=== PATIENT | male | born 1950 | race Caucasian/White ===

== ENCOUNTER 2019-06-05 18:51 | Observation (INO) ==
[2019-06-05 19:25] LABS: Basophils # 0.1 10*3/uL (0.0-0.2); Basophils % 0.9 % (0.0-0.8); Eosinophils # 0.3 10*3/uL (0.0-0.87); Hematocrit 35.9 VOL% (42.0-52.0); Hemoglobin 12.3 GM/DL (14.0-18.0); Immature Granulocytes % 0.3 %; Immature Granulocytes Absolute 0.02 #; Lymphocytes # 1.8 10*3/uL (1.4-4.0); Lymphocytes % 26.9 % (21.2-54.2); Mean Corpuscular HGB Conc 34.3 GM/DL (32-36); Mean Corpuscular Volume 91.6 FL (87-102); Mean Platelet Volume 11.2 FL (9.6-12.0); Monocytes % 8.8 % (1.7-12.7); Neutrophils % 59.1 % (38.7-73.9); Platelet Count 170 T/CUMM (130-400); Red Blood Count 3.92 MC/CUMM (3.8-5.5); Red Cell Distribution Width 12.6 % (9.3-17.3); White Blood Count 6.7 T/CUMM (4-12)
[2019-06-05] MEDS ORDERED: METOCLOPRAMIDE 10 MG/2 ML VIAL IV STA (19:43)
[2019-06-05] MEDS ORDERED: ONDANSETRON 4 MG/2 ML VIAL IV STA (19:43)
[2019-06-05] MEDS ORDERED: PANTOPRAZOLE 40 MG VIAL IV STA (19:43)
[2019-06-05 19:46] LABS: Alanine Aminotransferase 35 U/L (16-61); Albumin 3.5 G/DL (3.4-5.0); Alkaline Phosphatase 65 U/L (45-117); Aspartate Amino Transferase 18 U/L (0-37); Bilirubin,Total < 0.39 MG/DL (0.2-1.0); Blood Urea Nitrogen 16 MG/DL (7-18); Calcium 8.8 MG/DL (8.5-10.1); Estimated Glom Filtration Rate 76 ML/MIN; Glucose 126 MG/DL (74-106); Osmolality,Calculated 279.5 MOS/KG (273-304); Total Protein 6.9 G/DL (6.4-8.3)
[2019-06-05] MEDS ORDERED: ONDANSETRON 4 MG/2 ML VIAL IV PRN (20:31)
[2019-06-05] MEDS ORDERED: ACETAMINOPHEN 325 MG TABLET PO PRN (20:31)
[2019-06-05] MEDS ORDERED: ENOXAPARIN 40 MG/0.4 ML SYRINGE SUBCUT SCH (21:00)
[2019-06-05] MEDS ORDERED: MORPHINE 4 MG/1 ML VIAL IV PRN (22:22)
[2019-06-06] MEDS: NITROGLYCERIN 2% OINT 1 INCH/GM PACK TOP SCH ×2 (00:29→06:27)
[2019-06-06 06:54] LABS: Risk Ratio 3.32; VLDL CHOLESTEROL 24.2 MG/DL
[2019-06-06] MEDS ORDERED: ASPIRIN EC 325 MG TABLET PO SCH (09:00)
[2019-06-06] MEDS ORDERED: PANTOPRAZOLE 40 MG TABLET PO SCH (09:00)
[2019-06-06] MEDS ORDERED: lisinopriL 10 MG TABLET PO SCH (09:00)
[2019-06-06] MEDS ORDERED: SIMVASTATIN 20 MG TABLET PO SCH (09:00)
[2019-06-06] MEDS ORDERED: buPROPion 100 MG TABLET PO SCH (09:00)
[2019-06-06 12:11] LABS: Apearance,Urine CLEAR (Clear); Bilirubin,Urine Negative (Negative); Blood, Urine Small mg/dL (Negative); Glucose,Urine (UA) Negative (Negative); Ketones,Urine Negative (Negative); Mucus,Urine Occasional /LPF (Occasional); Nitrite,Urine Negative (Negative); Protein,Urine Negative; RBC,Urine 1 /HPF (0-4); Urine Color Yellow (Yellow); Urine Specific Gravity 1.014 (1.001-1.035); Urine Urobilinogen < 2.0 EU/DL (0.2-1.0); WBC,Urine 1 /HPF (0-6)
[2019-06-06 16:34] VITALS: BP 118/51
== END 2019-06-06 17:25 | disposition home or self-care (01) ==
LOC: N.ED 18:51 → N.EDINP 18:51 → N.4E 21:09
PROVIDERS: ADMIT Internal Medicine; ATTEND Internal Medicine

== ENCOUNTER 2019-10-29 05:38 | Observation (INO) ==
[2019-10-29 06:01] LABS: White Blood Count 8.9 T/CUMM (4-12)
[2019-10-29 06:02] LABS: Basophils # 0.1 10*3/uL (0.0-0.2); Basophils % 0.7 % (0.0-0.8); Eosinophils # 0.1 10*3/uL (0.0-0.87); Eosinophils % 0.9 % (0.00-10.9); Hematocrit 37.1 VOL% (42.0-52.0); Hemoglobin 12.4 GM/DL (14.0-18.0); Immature Granulocytes % 0.3 %; Immature Granulocytes Absolute 0.03 #; Lymphocytes % 10.9 % (21.2-54.2); Mean Corpuscular HGB Conc 33.4 GM/DL (32-36); Mean Corpuscular Volume 91.8 FL (87-102); Mean Platelet Volume 11.1 FL (9.6-12.0); Monocytes % 6.9 % (1.7-12.7); Neutrophils % 80.3 % (38.7-73.9); Platelet Count 164 T/CUMM (130-400); Red Blood Count 4.04 MC/CUMM (3.8-5.5); Red Cell Distribution Width 13.1 % (9.3-17.3)
[2019-10-29] MEDS ORDERED: DICYCLOMINE 20 MG/2 ML AMP IM ONE (06:10)
[2019-10-29] MEDS ORDERED: ONDANSETRON 4 MG/2 ML VIAL IV STA (06:10)
[2019-10-29] MEDS ORDERED: SODIUM CHLORIDE 0.9% 500 ML IV STA (06:10)
[2019-10-29] MEDS ORDERED: METOCLOPRAMIDE 10 MG/2 ML VIAL IV STA (06:10)
[2019-10-29] MEDS ORDERED: PANTOPRAZOLE 40 MG VIAL IV STA (06:10)
[2019-10-29 06:20] LABS: Albumin 3.3 G/DL (3.4-5.0); Bilirubin,Total 0.5 MG/DL (0.2-1.0); Calcium 8.6 MG/DL (8.5-10.1); Osmolality,Calculated 274.1 MOS/KG (273-304); Total Protein 7.3 G/DL (6.4-8.3)
[2019-10-29 06:45] LABS: Troponin I 0.047 NG/ML (0.00-0.045)
[2019-10-29 07:08] LABS: Apearance,Urine CLEAR (Clear); Bacteria,Urine Occasional /HPF (Few); Bilirubin,Urine Negative (Negative); Blood, Urine Small mg/dL (Negative); Glucose,Urine (UA) Negative (Negative); Ketones,Urine Negative (Negative); Mucus,Urine Occasional /LPF (Occasional); Nitrite,Urine Negative (Negative); Protein,Urine Negative; RBC,Urine <1 /HPF (0-4); Urine Color Straw (Yellow); Urine Specific Gravity 1.009 (1.001-1.035); Urine Urobilinogen < 2.0 EU/DL (0.2-1.0)
[2019-10-29 07:17] LABS: Hypochromasia Slight; Microcytosis Slight
[2019-10-29 07:18] LABS: Platelet Estimate Adequate
[2019-10-29] MEDS ORDERED: HYDROmorphone 2 MG/1 ML VIAL IV PRN (07:18)
[2019-10-29] MEDS ORDERED: ONDANSETRON 4 MG/2 ML VIAL IV PRN (07:18)
[2019-10-29] MEDS: BISACODYL 5 MG TABLET PO SCH (08:30)
[2019-10-29] MEDS: PANTOPRAZOLE 40 MG TABLET PO SCH (08:30)
[2019-10-29] MEDS: DEXTROSE 5% LACTATED RINGERS 1,000 ML IV SCH ×2 (09:20→20:50)
[2019-10-29] MEDS: PIPERACILLIN/TAZOBACTAM 3,375 MG in SODIUM CHLORIDE 0.9% 100 ML IV SCH ×3 (09:24→23:11)
[2019-10-29] MEDS ORDERED: hydrALAZINE 20 MG/1 ML VIAL IV PRN (14:00)
[2019-10-29] MEDS ORDERED: amLODIPine 10 MG TABLET PO ONE (14:13)
[2019-10-29] MEDS ORDERED: lisinopriL 5 MG TABLET PO ONE (14:17)
[2019-10-29 14:51] LABS: Risk Ratio 3.68; VLDL CHOLESTEROL 32.6 MG/DL
[2019-10-29] MEDS: buPROPion 100 MG TABLET PO SCH (16:21)
[2019-10-29] MEDS: SIMVASTATIN 20 MG TABLET PO SCH (20:57)
[2019-10-30] MEDS: LEVOTHYROXINE 50 MCG TABLET PO SCH (05:51)
[2019-10-30] MEDS: DEXTROSE 5% LACTATED RINGERS 1,000 ML IV SCH ×2 (06:00→09:10)
[2019-10-30 06:31] LABS: Basophils % 0.8 % (0.0-0.8); Eosinophils # 0.3 10*3/uL (0.0-0.87); Eosinophils % 6.4 % (0.00-10.9); Hematocrit 34.8 VOL% (42.0-52.0); Hemoglobin 11.3 GM/DL (14.0-18.0); Immature Granulocytes % 0.2 %; Immature Granulocytes Absolute 0.01 #; Lymphocytes # 1.5 10*3/uL (1.4-4.0); Lymphocytes % 28.7 % (21.2-54.2); Mean Corpuscular HGB Conc 32.5 GM/DL (32-36); Mean Corpuscular Volume 94.3 FL (87-102); Mean Platelet Volume 11.5 FL (9.6-12.0); Monocytes % 10.5 % (1.7-12.7); Neutrophils % 53.4 % (38.7-73.9); Platelet Count 147 T/CUMM (130-400); Red Blood Count 3.69 MC/CUMM (3.8-5.5); Red Cell Distribution Width 13.3 % (9.3-17.3); White Blood Count 5.2 T/CUMM (4-12)
[2019-10-30 07:07] LABS: Albumin 3.1 G/DL (3.4-5.0); Bilirubin,Total 0.5 MG/DL (0.2-1.0); Calcium 8.6 MG/DL (8.5-10.1); Osmolality,Calculated 277.5 MOS/KG (273-304); Total Protein 6.6 G/DL (6.4-8.3)
[2019-10-30] MEDS ORDERED: amLODIPine 10 MG TABLET PO SCH (09:00)
[2019-10-30] MEDS: PIPERACILLIN/TAZOBACTAM 3,375 MG in SODIUM CHLORIDE 0.9% 100 ML IV SCH ×3 (09:11→23:40)
[2019-10-30] MEDS: BISACODYL 5 MG TABLET PO SCH (09:13)
[2019-10-30] MEDS: buPROPion 100 MG TABLET PO SCH (09:13)
[2019-10-30] MEDS: ASPIRIN CHEW 81 MG TABLET PO SCH (09:14)
[2019-10-30] MEDS: lisinopriL 5 MG TABLET PO SCH (09:14)
[2019-10-30] MEDS: PANTOPRAZOLE 40 MG TABLET PO SCH (09:15)
[2019-10-30] MEDS: amLODIPine 10 MG TABLET PO SCH (09:15)
[2019-10-30] MEDS: ENOXAPARIN 40 MG/0.4 ML SYRINGE SUBCUT SCH (09:18)
[2019-10-30] MEDS: ACETAMINOPHEN 325 MG TABLET PO PRN ×2 (11:59→23:40)
[2019-10-30] MEDS ORDERED: MELATONIN 3 MG TABLET PO ONE (20:29)
[2019-10-30] MEDS: SIMVASTATIN 20 MG TABLET PO SCH (21:07)
[2019-10-31] MEDS: LEVOTHYROXINE 50 MCG TABLET PO SCH (06:11)
[2019-10-31] MEDS: DEXTROSE 5% LACTATED RINGERS 1,000 ML IV SCH (06:12)
[2019-10-31] MEDS: PIPERACILLIN/TAZOBACTAM 3,375 MG in SODIUM CHLORIDE 0.9% 100 ML IV SCH (08:17)
[2019-10-31] MEDS: BISACODYL 5 MG TABLET PO SCH (08:20)
[2019-10-31] MEDS: amLODIPine 10 MG TABLET PO SCH (08:21)
[2019-10-31] MEDS: lisinopriL 5 MG TABLET PO SCH (08:21)
[2019-10-31] MEDS: ASPIRIN CHEW 81 MG TABLET PO SCH (08:21)
[2019-10-31] MEDS: PANTOPRAZOLE 40 MG TABLET PO SCH (08:21)
[2019-10-31] MEDS: buPROPion 100 MG TABLET PO SCH (08:21)
[2019-10-31] MEDS: ENOXAPARIN 40 MG/0.4 ML SYRINGE SUBCUT SCH (08:22)
[2019-10-31 11:05] VITALS: BP 130/87
== END 2019-10-31 15:10 | disposition home or self-care (01) ==
LOC: EDUNIT# → EDBD → N.ED 05:38 → N.EDINP 05:38 → N.3E 13:18
PROVIDERS: ADMIT Student in an Organized Health Care Education/Training Program; ATTEND Student in an Organized Health Care Education/Training Program